=== PATIENT | male | born 1960 | race Caucasian/White ===

== ENCOUNTER 2025-02-17 08:36 | Emergency (ER) | payer OTHER, MEDICARE ==
[~2025-02-17] VITALS: Ht 193 cm; Wt 77.0 kg
[2025-02-17] MEDS ORDERED: MECLIZINE HCL 25 MG TAB PO ONE (09:00)
[2025-02-17] MEDS ORDERED: ROSUVASTATIN CAL5 MG PO (09:01)
[2025-02-17] MEDS ORDERED: VAZALORE81 MG PO (09:02)
[2025-02-17] MEDS ORDERED: METFORMIN HCL1000 MG PO (09:02)
[2025-02-17] MEDS ORDERED: GLIPIZIDE10 MG PO (09:03)
[2025-02-17] MEDS ORDERED: MECLIZINE HCL25 MG PO (09:41)
[2025-02-17 09:47] VITALS: BP 126/69
== END 2025-02-17 09:47 | disposition home or self-care (01) ==
LOC: ED 08:36
DX: H81.399 Other peripheral vertigo, unspecified ear (principal); Z79.84 Long term (current) use of oral hypoglycemic drugs; Z79.82 Long term (current) use of aspirin; Z79.899 Other long term (current) drug therapy
CPT/HCPCS: 99283; A9270